=== PATIENT | female | born 1980 | race Asian ===

== ENCOUNTER 2019-01-23 22:54 | Emergency (ER) | payer MEDICARE ==
[~2019-01-23] VITALS: Ht 162.6 cm; Wt 64.0 kg
[2019-01-24] MEDS ORDERED: SODIUM CHLORIDE 0.9% 1,000 ML IV ONE (03:15)
[2019-01-24] MEDS ORDERED: ONDANSETRON HCL 4MG/2ML INJ IV STA (03:15)
[2019-01-24] MEDS ORDERED: FAMOTIDINE 20MG/2ML VIAL IV STA (03:15)
[2019-01-24 03:55] LABS: BASOPHILS % 0.8 % (0.0-2.0); EOSINOPHILS % 3.7 % (0.0-5.0); HEMATOCRIT. 38.8 % (36.0-48.0); HEMOGLOBIN. 13.2 g/dL (12.0-16.0); LYMPHOCYTES % 38.6 % (20.0-50.0); MEAN CORPUSCULAR HEMOGLOBIN 31.4 pg (28.0-32.0); MEAN CORPUSCULAR VOLUME 92.5 fL (81.0-99.0); MEAN PLATELET VOLUME 8.3 fl (7.4-10.4); MONOCYTES % 7.2 % (2.0-8.0); NEUTROPHILS % 49.7 % (40.0-76.0); PLATELET 241 x1000/uL (130-400); RED CELL DISTRIBUTION WIDTH 12.7 % (11.6-14.6)
[2019-01-24 04:00] LABS: CLARITY URINE CLEAR (CLEAR); COLOR URINE YELLOW (YELLOW); KETONES URINE TRACE (NEGATIVE); LEUKOCYTE ESTERASE URINE NEGATIVE (NEGATIVE); NITRITE URINE NEGATIVE (NEGATIVE); OCCULT BLOOD URINE NEGATIVE (NEGATIVE); PROTEIN URINE NEGATIVE (NEGATIVE); SPECIFIC GRAVITY URINE 1.026 (1.005-1.030); UROBILINOGEN URINE 0.2 E.U./dL (0.2-1.0)
[2019-01-24 04:01] LABS: CHLORIDE 103 mEq/L (98-107)
[2019-01-24] MEDS ORDERED: POTASSIUM CHLORIDE 20MEQ TABLET SR PO SCH (05:04)
[2019-01-24 06:14] VITALS: BP 113/68
== END 2019-01-24 06:15 | disposition home or self-care (01) ==
LOC: ER 22:54
DX: E87.6 Hypokalemia (principal); R42 Dizziness and giddiness
CPT/HCPCS: 36415; 80053; 81003; 81025; 83690; 85025; 96361; 96374; 96375; 99283; J2405; J3490; J7030; Z7610

== ENCOUNTER 2019-03-02 17:01 | Emergency (ER) | payer MEDICARE ==
[~2019-03-02] VITALS: Ht 165.1 cm; Wt 50.0 kg
[2019-03-02 17:22] VITALS: BP 100/68
[2019-03-02 18:28] LABS: *AMPHETAMINES SCREEN URINE NEGATIVE (NEGATIVE); *BARBITURATES SCREEN URINE NEGATIVE (NEGATIVE); *BENZODIAZEPINES SCREEN URINE NEGATIVE (NEGATIVE)
[2019-03-02 18:29] LABS: *COCAINE SCREEN URINE NEGATIVE (NEGATIVE); CANNABINOID URINE SCREEN NEGATIVE (NEGATIVE); METHADONE URINE SCREEN NEGATIVE (NEGATIVE); OPIATES URINE SCREEN NEGATIVE (NEGATIVE); PHENCYCLIDINE URINE SCREEN NEGATIVE (NEGATIVE)
== END 2019-03-02 18:46 | disposition home or self-care (01) ==
LOC: ER 17:01
DX: Z13.89 Encounter for screening for other disorder (principal)
CPT/HCPCS: 80305; 99283

== ENCOUNTER 2021-11-23 16:08 | Emergency (ER) | payer MEDICARE, OTHER ==
[~2021-11-23] VITALS: Ht 160 cm; Wt 59.0 kg
[2021-11-23] MEDS ORDERED: TETANUS, DIPHTHERIA, PERTUSSIS VAC/PF 0.5ML (>10YR OLD) IM ONE (17:15)
[2021-11-23] MEDS ORDERED: ACETAMINOPHEN 500MG TABLET PO ONE (17:15)
[2021-11-23] MEDS ORDERED: ACET-2708 MT (17:17)
[2021-11-23 17:55] VITALS: BP 128/84
== END 2021-11-23 17:56 | disposition home or self-care (01) ==
LOC: ER 16:08
DX: S00.83XA Contusion of other part of head, initial encounter (principal); S00.212A Abrasion of left eyelid and periocular area, initial encounter; J45.909 Unspecified asthma, uncomplicated; W01.198A Fall on same level from slipping, tripping and stumbling with subsequent striking against other object, initial encounter; Y93.E9 Activity, other interior property and clothing maintenance; Y92.813 Airplane as the place of occurrence of the external cause
CPT/HCPCS: 81025; 90471; 90715; 99283